=== PATIENT | female | born 1975 | race American Indian/Alaskan Native ===

== ENCOUNTER 2021-09-13 16:30 | Emergency (ER) | payer SELFPAY ==
[2021-09-13 16:35] VITALS: BP 127/88
--- NOTE | 2021-09-13 16:47 | Emergency Department Report ---
- General Chief Complaint: Extremity Injury, Lower Stated Complaint: LEG PAIN Time Seen by Provider: 09/13/21 16:38 Source: patient Mode of arrival: Ambulatory Limitations: No Limitations - History of Present Illness Initial Comments: Chief complaint: I was stung by bee HPI: This is a 46-year-old female*past medical history who has redness itching left thigh after being stung by bee on yesterday. Similar reaction with previous bee sting calls severe swelling in her arm. She denies shortness of breath wheezing syncope. Denies vomiting. -: Gradual, days(s) (Yesterday) Location: other (Left thigh) Extremity Location: Left: Shoulder, Thigh Place: outdoors Context: other (Bee sting) Associated Symptoms: pain (Redness itching) - Related Data Previous Rx's Medication Instructions Recorded Last Taken Type Hydrocortisone 1% [Hydrocortisone 1 applicatio TP TID 7 Days #1 tube 09/13/21 Unknown Rx 1% CREAM] Loratadine 10 mg PO DAILY 7 Days #7 tablet 09/13/21 Unknown Rx Prednisone [predniSONE 10 mg 10 mg PO .TAPER #1 tab.ds.pk 09/13/21 Unknown Rx (6-Day Pack, 21 Tabs)] Allergies Allergy/AdvReac Type Severity Reaction Status Date / Time No Known Allergies Allergy Unverified 09/13/21 16:32 ED Review of Systems ROS: Stated complaint: LEG PAIN Other details as noted in HPI Constitutional: denies: fever, malaise Respiratory: denies: cough, shortness of breath Cardiovascular: denies: chest pain Gastrointestinal: denies: nausea, vomiting Skin: rash, lesions ED Past Medical Hx - Past Medical History Previous Medical History?: No - Surgical History Past Surgical History?: No - Medications Home Medications: Home Medications Medication Instructions Recorded Confirmed Last Taken Type Hydrocortisone 1% [Hydrocortisone 1 applicatio TP TID 7 Days #1 tube 09/13/21 Unknown Rx 1% CREAM] Loratadine 10 mg PO DAILY 7 Days #7 tablet 09/13/21 Unknown Rx Prednisone [predniSONE 10 mg 10 mg PO .TAPER #1 tab.ds.pk 09/13/21 Unknown Rx (6-Day Pack, 21 Tabs)] ED Physical Exam - General Limitations: No Limitations General appearance: alert, in no apparent distress - Respiratory Respiratory exam: Absent: respiratory distress, rhonchi - Extremities Exam Extremities exam: Present: other (Left thigh: Edematous erythematous area involving the entire anterior thigh no openr skin no stinger) - Neurological Exam Neurological exam: Present: alert, oriented X3 - Psychiatric Psychiatric exam: Present: normal affect, normal mood - Skin Skin exam: Present: erythema ED Course Vital Signs 09/13/21 16:34 Temperature 98 F Pulse Rate 62 Respiratory 16 Rate Blood Pressure 127/88 [Right] O2 Sat by Pulse 100 Oximetry ED Medical Decision Making - Medical Decision Making Localized allergic reaction to bee sting: Patient received Benadryl and IM Decadron emergency department. Prescribed loratadine prednisone. Critical care attestation.: If time is entered above; I have spent that time in minutes in the direct care of this critically ill patient, excluding procedure time. ED Disposition Clinical Impression: Allergic reaction to bee sting Disposition: 01 HOME / SELF CARE / HOMELESS Is pt being admited?: No Does the pt Need Aspirin: No Condition: Stable Instructions: Bee, Wasp, or Hornet Sting, Adult Prescriptions: Hydrocortisone 1% [Hydrocortisone 1% CREAM] 1 applicatio TP TID 7 Days #1 tube Loratadine 10 mg PO DAILY 7 Days #7 tablet Prednisone [predniSONE 10 mg (6-Day Pack, 21 Tabs)] 10 mg PO .TAPER #1 tab.ds.pk Referrals: PITER TAMAYO MD [Staff Physician] - 3-5 Days
[2021-09-13] MEDS ORDERED: dexAMETHasone 20 MG/5 ML VIAL IM ONE (16:48)
[2021-09-13] MEDS ORDERED: diphenhydrAMINE 25 MG CAP PO ONE (16:48)
== END 2021-09-13 17:10 | disposition home or self-care (01) ==
LOC: ED 16:30
DX: T63.441A Toxic effect of venom of bees, accidental (unintentional), initial encounter (principal); L29.9 Pruritus, unspecified; Y92.89 Other specified places as the place of occurrence of the external cause
CPT/HCPCS: 96372; 99282; J1100